=== PATIENT | female | born 1955 | race Asian ===

== ENCOUNTER → 2016-11-16 | Outpatient (CLI) | payer BC | LOC: MC.RAD 13:42 | DX: Z12.31 Encounter for screening mammogram for malignant neoplasm of breast (principal) ==

== ENCOUNTER → 2017-01-31 | Outpatient (CLI) | payer BC | LOC: COL.RAD 11:15 | DX: E04.2 Nontoxic multinodular goiter (principal) ==

== ENCOUNTER → 2017-02-14 | Outpatient (CLI) | payer BC ==
[~2017-02-14] VITALS: Ht 144.8 cm; Wt 57.8 kg
[2017-02-14 09:07] VITALS: BP 150/92; PULSE 74
[2017-02-14 10:16] VITALS: BP 156/81; PULSE 71
== END ==
LOC: COL.RAD 08:46
DX: C73 Malignant neoplasm of thyroid gland (principal)

== ENCOUNTER → 2017-05-13 | Outpatient (REF) ==
[2017-05-13 15:54] LABS: ALBUMIN 3.9 gm/dL (3.5-5.0); CALCIUM 8.9 mg/dL (8.4-10.2); PHOSPHOROUS 3.7 mg/dL (2.5-4.5)
== END ==
LOC: ZMSC 15:40
PROVIDERS: Otolaryngology
DX: Z02.89 Encounter for other administrative examinations (principal)

== ENCOUNTER → 2017-05-14 | Outpatient (REF) ==
[2017-05-14 06:56] LABS: ALBUMIN 3.6 gm/dL (3.5-5.0); CALCIUM 8.5 mg/dL (8.4-10.2); PHOSPHOROUS 5.8 mg/dL (2.5-4.5)
== END ==
LOC: ZMSC 06:35
PROVIDERS: Otolaryngology
DX: Z02.89 Encounter for other administrative examinations (principal)

== ENCOUNTER → 2018-01-15 | Outpatient (CLI) | payer BC | LOC: MC.RAD 13:20 | DX: Z12.31 Encounter for screening mammogram for malignant neoplasm of breast (principal) ==

== ENCOUNTER → 2018-07-21 | Outpatient (CLI) | payer BC | LOC: COL.RAD 10:19 | DX: K76.89 Other specified diseases of liver (principal) ==

== ENCOUNTER → 2019-01-21 | Outpatient (CLI) | payer BC | LOC: MC.RAD 14:45 | DX: Z12.31 Encounter for screening mammogram for malignant neoplasm of breast (principal); N64.89 Other specified disorders of breast ==

== ENCOUNTER → 2019-01-27 | Outpatient (CLI) | payer BC | LOC: MC.RAD 13:44 | DX: R92.2 Inconclusive mammogram (principal); N64.89 Other specified disorders of breast | CPT/HCPCS: G0279 ==

== ENCOUNTER → 2019-02-06 | Outpatient (CLI) | payer BC | LOC: COL.RAD 12:55 | DX: K76.89 Other specified diseases of liver (principal) ==

== ENCOUNTER → 2019-02-16 | Outpatient (CLI) | payer BC | LOC: COL.RAD 09:30 | DX: R10.11 Right upper quadrant pain (principal) | CPT/HCPCS: A9537 ==

== ENCOUNTER → 2020-05-19 | Outpatient (CLI) | payer BC | LOC: MC.RAD 10:21 | DX: Z12.31 Encounter for screening mammogram for malignant neoplasm of breast (principal) ==

== ENCOUNTER → 2021-06-08 | Outpatient (CLI) | payer BC | LOC: MC.RAD 11:43 | DX: Z12.31 Encounter for screening mammogram for malignant neoplasm of breast (principal) ==